=== PATIENT | female | born 1985 | race American Indian/Alaskan Native ===

== ENCOUNTER 2018-05-14 14:29 | Emergency (ER) | payer MEDICAID ==
[~2018-05-14] VITALS: Ht 167.6 cm; Wt 72.1 kg
[2018-05-14 16:48] VITALS: BP 141/79
[2018-05-14 18:27] LABS: Urine Bacteria FEW /hpf (None Seen); Urine Blood 2+ /uL (Negative); Urine WBC 230 /hpf (0 - 5)
[2018-05-14] MEDS ORDERED: cefTRIAXone SOD 1,000 MG VL IM ONE (18:45)
== END 2018-05-14 18:54 | disposition home or self-care (01) ==
LOC: ER 14:36
DX: N39.0 Urinary tract infection, site not specified (principal); R21 Rash and other nonspecific skin eruption
CPT/HCPCS: 81001; 96372; 99283; J0696